=== PATIENT | female | born 1945 | race Caucasian/White ===

== ENCOUNTER 2022-10-13 09:23 | Outpatient (OUT) | payer MEDICARE, OTHER, SELFPAY ==
--- NOTE | 2022-10-13 09:30 | MR_ITS ---
[address] [address] Patient Name: CYNTHIA DORMAN MRN: [id number] date: 1945 Sex: F Assigned Patient Location: MRI Current Patient Location: MRI Accession/Order Number: [id number] Exam Date: 10/13/2022 09:47 Report Date: 10/13/2022 19:46 At the request of: RAJANI PENDLETON Procedure: MR head/brain wo con EXAM: MR head/brain wo con HISTORY: Vertigo R42 COMPARISON: None. TECHNIQUE: Multiplanar multisequence MRI was obtained through the head without contrast FINDINGS: The ventricles, sulci, and remaining CSF containing spaces maintain age-appropriate volume and symmetry. No hydrocephalus. No herniation. The anton matter/white matter differentiation is maintained. Previous small infarct at the left temporal lobe. No acute infarct, intracranial hemorrhage, or parenchymal mass. Periventricular and deep white matter foci of T2 prolongation. The central arterial flow voids and the flow voids of the major dural venous sinuses are maintained, indicative of patency. Opacification of several right mastoid air cells. Postsurgical changes of the lenses. MR/MR head/brain wo con IMPRESSION: 1. No acute intracranial abnormality. 2. 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 3. Opacification of several left mastoid air cells. Electronically authenticated by: HILLARY GREENE Date: 10/13/2022 19:46
== END 2022-10-13 09:24 | disposition home or self-care (01) ==
LOC: MRI 09:23
PROVIDERS: PCP Family Medicine; Visit Provider Family Medicine
DX: R42 Dizziness and giddiness (principal)
CPT/HCPCS: 70551

== ENCOUNTER 2023-03-15 07:32 | Outpatient (OUT) | payer MEDICARE, OTHER, SELFPAY ==
[2023-03-15 07:53] LABS: Basophils Absolute Auto 0.1 10^3/uL (0.0-0.1); Basophils Percent Auto 0.7 % (0.2-2.0); Eosinophils Absolute Auto 0.3 10^3/uL (0.0-0.7); Eosinophils Percent Auto 4.1 % (0.9-7.0); Hematocrit 37.6 % (36.0-48.0); Hemoglobin 12.4 g/dL (12.0-16.0); Immature Granulocytes Abs Auto 0.01 10^3/uL (0.00-0.03); Immature Granulocytes Pct Auto 0.1 % (0.0-0.5); Lymphocytes Absolute Auto 2.4 10^3/uL (1.2-3.8); Lymphocytes Percent Auto 33.1 % (20.5-60.0); Mean Corpuscular Hemoglobin 31.6 pg (26.7-34.0); Mean Corpuscular Volume 95.9 fL (81.0-99.0); Mean Platelet Volume 10.1 fL (9.5-13.5); Monocytes Absolute Auto 0.6 10^3/uL (0.3-0.8); Monocytes Percent Auto 8.3 % (1.7-12.0); Neutrophils Percent Auto 53.7 % (43.0-75.0); Platelet Count 288 10^3/uL (150-450); Red Blood Count 3.92 10^6/uL (4.20-5.40); Red Cell Distribution Width 13.4 % (11.0-15.0); White Blood Count 7.4 10^3/uL (4.0-11.0)
[2023-03-15 09:08] LABS: Alanine Aminotransferase 29 U/L (14-59); Albumin Globulin Ratio 0.9; Albumin Level 3.5 g/dL (3.4-5.0); Alkaline Phosphatase 52 U/L (46-116); Anion Gap 13.4; Aspartate Amino Transferase 25 U/L (15-37); BUN Creatinine Ratio 26.5; Bilirubin Total 0.5 mg/dL (0.2-1.0); Calcium 9.2 mg/dL (8.5-10.1); Carbon Dioxide 29.3 mmol/L (21.0-32.0); Chloride 106 mmol/L (98-107); Chol HDL Ratio 2.7; Cholesterol 153 mg/dL (<=200); Estimated GFR (African America >60 (>=60); Estimated GFR (Non-African Ame >60 (>=60); Free T3 1.54 pg/mL (2.18-3.98); Globulin 3.8 g/dL; Glucose 94 mg/dL (74-106); HDL Cholesterol 56 mg/dL (40-60); Potassium 4.7 mmol/L (3.5-5.1); Sodium 144 mmol/L (136-145); Thyroid Stimulating Hormone 3.454 uIU/mL (0.358-3.740); Total Protein 7.3 g/dL (6.4-8.2); Triglycerides 85 mg/dL (<=150)
[2023-03-15 09:25] LABS: Estimated Average Glucose 123 mg/dL; Glycohemoglobin A1C 5.9 % (4.5-6.2)
== END 2023-03-15 07:33 | disposition home or self-care (01) ==
LOC: LAB 07:34
PROVIDERS: PCP Family Medicine; Visit Provider Family Medicine
DX: H65.90 Unspecified nonsuppurative otitis media, unspecified ear (principal); E78.00 Pure hypercholesterolemia, unspecified; F41.9 Anxiety disorder, unspecified; R73.09 Other abnormal glucose; D64.9 Anemia, unspecified; E55.9 Vitamin D deficiency, unspecified
CPT/HCPCS: 36415; 80053; 80061; 82306; 83036; 83540; 84436; 84443; 84481; 85025

== ENCOUNTER 2023-07-30 09:41 | Outpatient (OUT) | payer MEDICARE, OTHER, SELFPAY ==
--- OUTSIDE RECORDS SUMMARY | 2023-07-30 09:57 | XMS_ITS | CCD ---
Author Organization [facility] Care Team Providers Care Fruit Sorter Name Role Phone DR RAJANI PENDLETON Attending Unavailable KEERTHI, DR GERARD Primary Care Unavailable KEERTHI, DR GERARD Admitting Unavailable KEERTHI, DR GERARD Attending Unavailable KEERTHI, DR GERARD Consulting Unavailable KEERTHI, DR GERARD Primary Care Unavailable KEERTHI, DR GERARD Admitting Unavailable VERONICA, DR KELLI Castaneda Consulting Unavailable KEERTHI, DR GERARD Consulting Unavailable KEERTHI, DR GERARD Primary Care Unavailable KEERTHI, DR GERARD Admitting Unavailable KEERTHI, DR GERARD Attending Unavailable DANI ESPINOZA Attending Unavailable RAJANI PENDLETON Referring Unavailable Problems Active Problems Problem Classification Problem Date Documented Date Episodic/Chronic Disorders of lipid metabolism (5 sources) Pure hypercholesterolemia, unspecified; Translations: [Hyperlipidemia, unspecified] Onset: 08-13-2021 Chronic Spondylosis; intervertebral disc disorders; other back problems (4 sources) Sacrococcygeal disorders, not elsewhere classified; Translations: [SACROCOCCYGEAL DISORDERS NEC] Onset: 04-29-2022 Episodic Past or Other Problems Problem Classification Problem Date Documented Da te Episodic/Chronic Conditions associated with dizziness or vertigo (4 sources) Other peripheral vertigo, unspecified ear; Translations: [OTHER PERIPHERAL VERTIGO UNS EAR] Onset: 12-05-2021 Episodic Deficiency and other anemia (1 source) Anemia, unspecified; Translations: [ANEMIA UNSPECIFIED] Onset: 08-19-2021 Episodic Diabetes mellitus without complication (1 source) Other abnormal glucose; Translations: [OTHER ABNORMAL GLUCOSE] Onset: 08-19-2021 Episodic Other screening for suspected conditions (not mental disorders or infectious disease) (1 source) Encounter for screening for malignant neoplasm of rectum; Translations: [ENC SCREEN MALIG NEOPLASM RECTUM] Onset: 08-19-2021 Episodic Results Test Name Value Interpretation Reference Range Facil ity CBC AUTO DIFFon 08-13-2021 BASO # 0.0 103/ul Normal 0.0-0.1 [facility] Comment on above: Performed By: #### C BC #### [facility] [address] [address] [address] Jonathan Morel Basophils/100 WBC (Bld) 0.5 % Normal 0.2-2.0 [facility] Comment on above: Performed By: #### C BC #### [facility] [address] [address] [address] Jonathan Morel EO # 0.1 103/ul Normal 0.0-0.7 [facility] Comment on above: Performed By: #### C BC #### [facility] [address] [place] [address] Dr. Jonathan Morel Eosinophils/100 WBC (Bld) 1.4 % Normal 0.9-7.0 [facility] Comment on above: Performed By: #### C BC #### [facility] [address] [place] [address] Dr. Jonathan Morel Erythrocyte distribution width (RBC) [Ratio] 13.2 % Normal 11.0-15.0 [facility] Comment on above: Performed By: #### C BC #### [facility] [address] [place] [address] Dr. Jonathan Morel Hematocrit (Bld) [Volume fraction] 39.0 % Normal 36.0-48.0 [facility] Comment on above: Performed By: #### C BC #### [facility] [address] [place] [address] Dr. Jonathan Morel Hemoglobin (Bld) [Mass/Vol] 12.9 g/dL Normal 12.0-16.0 [facility] Comment on above: Performed By: #### C BC #### [facility] [address] [place] [address] Dr. Jonathan Morel IG # 0.01 10e3/ul Normal 0.00-0.03 [facility] Comment on above: Performed By: #### C BC #### [facility] [address] [place] [address] Dr. Jonathan Morel IG % 0.2 % Normal 0.0-0.5 [facility] Comment on above: Performed By: #### C BC #### [facility] [address] [place] [address] Dr. Jonathan Morel LYMPH # 2.1 103/ul Normal 1.2-3.8 [facility] Comment on above: Performed By: #### C BC #### [facility] [address] [place] [address] Dr. Jonathan Morel Lymphocytes/100 WBC (Bld) 37.6 % Normal 20.5-60.0 [facility] Comment on above: Performed By: #### C BC #### [facility] [address] [place] [address] Dr. Jonathan Morel MANUAL DIFF REQ NO Normal [facility] Comment on above: Performed By: #### C BC #### [facility] [address] [place] [address] Dr. Jonathan Morel MCH (RBC) [Entitic mass] 31.3 pg Normal 26.7-34.0 [facility] Comment on above: Performed By: #### C BC #### [facility] [address] [place] [address] Dr. Jonathan Morel MCHC (RBC) [Mass/Vol] 33.1 g/dL Normal 29.9-35.2 [facility] Comment on above: Performed By: #### C BC #### [facility] [address] [place] [address] Dr. Jonathan Morel MCV (RBC) [Entitic vol] 94.7 fL Normal 81.0-99.0 [facility] Comment on above: Performed By: #### C BC #### [facility] [address] [place] [address] Dr. Jonathan Moerl MONO # 0.5 103/ul Normal 0.3-0.8 [facility] Comment on above: Performed By: #### C BC #### [facility] [address] [place] [address] Dr. Jonathan Morel Monocytes/100 WBC (Bld) 8.6 % Normal 1.7-12.0 [facility] Comment on above: Performed By: #### C BC #### [facility] [address] [address] [address] Jonathan Mroel NEUT # 2.9 103/ul Normal 1.4-6.5 [facility] Comment on above: Performed By: #### C BC #### [facility] [address] [address] [address] Jonathan Morel Neutrophils/100 WBC (Bld) 51.7 % Normal 43.0-75.0 [facility] Comment on above: Performed By: #### C BC #### [facility] [address] [place] [address] Dr. Jonathan Morel Platelet mean volume (Bld) [Entitic vol] 9.9 fL Normal 9.5-13.5 [facility] Comment on above: Performed By: #### C BC #### [facility] [address] [place] [address] Dr. Jonathan Morel PLT 298 103/ul Normal 150-450 [facility] Comment on above: Performed By: #### C BC #### [facility] [address] [place] [address] Dr. Jonathan Morel RBC 4.12 106/ul Critically low 4.20-5.40 [facility] Comment on above: Performed By: #### C BC #### [facility] [address] [place] [address] Dr. Jonathan Morel WBC 5.6 103/ul Normal 4.0-11.0 [facility] Comment on above: Performed By: #### C BC #### [facility] [address] [place] [address] Dr. Jonathan Morel FREE THYROXINE INDEX T7on FTI 2.52 Normal 1.30-4.50 [facility] Comment on above: Performed By: #### T SH, CMP, LIPID, T7 #### [facility] [address] [place] [address] Dr. Jonathan Morel T3U 34.0 % Normal 30.0-39.0 [facility] Comment on above: Performed By: #### T SH, CMP, LIPID, T7 #### [facility] [address] [address] [address] Jonathan Morel T4 [Mass/Vol] 7.40 ug/dL Normal 4.80-13.90 [facility] Comment on above: Performed By: #### T SH, CMP, LIPID, T7 #### [facility] [address] [address] [address] Jonathan Morel GLYCOHEMOGLOBIN A1Con 2021 ADA RECOMMENDATION SEE BELOW Normal [facility] Comment on above: Result Comment: ADA RECOMMENDED LIMIT 4.0 - 6.0 ADA THERAPEUTIC TARGET < 7.0 ACTION SUGGESTED > 7.0 Performed By: #### A 1C #### [facility] [address] [place] [address] Dr. Jonathan Morel Glucose [Mass/Vol] 120 mg/dL Normal [facility] Comment on above: Performed By: #### A 1C #### [facility] [address] [place] [address] Dr. Jonathan Morel HbA1c (Bld) [Mass fraction] 5.8 % Normal 4.5-6.2 [facility] Comment on above: Performed By: #### A 1C #### [facility] [address] [place] [address] Dr. Jonathan Morel IRONon 08-13-2021 Iron [Mass/Vol] 128.0 ug/dL Normal 50.0-170.0 [facility] Comment on above: Performed By: #### I JOSE ANGEL #### [facility] [address] [place] [address] Dr. Jonathan Morel LIPID PROFILEon 08-13-2021 CHOL-HDL RATIO NORM SEE BELOW Normal [facility] Comment on above: Result Comment: 3.3 - 4.4 LOW RISK 4.4 - 7.1 AVERAGE RISK 7.1 - 11.0 MODERATE RISK >11.0 HIGH RISK Performed By: #### T SH, CMP, LIPID, T7 #### [facility] [address] [place] [address] Dr. Jonathan Morel Cholesterol [Mass/Vol] 145 mg/dL Normal <=200 [facility] Comment on above: Performed By: #### T SH, CMP, LIPID, T7 #### [facility] [address] [address] [address] Jonathan Morel Cholesterol in HDL [Mass/Vol] 53 mg/dL Normal 40-60 [facility] Comment on above: Performed By: #### T SH, CMP, LIPID, T7 #### [facility] [address] [address] [address] Jonathan Morel Cholesterol in LDL [Mass/Vol] 71.8 mg/dL Normal [facility] Comment on above: Performed By: #### T SH, CMP, LIPID, T7 #### [facility] [address] [address] [address] Jonathan Morel Cholesterol.total/Cho lesterol in HDL [Mass ratio] 2.7 {ratio} Normal [facility] Comment on above: Performed By: #### T SH, CMP, LIPID, T7 #### [facility] [address] [address] [address] Jonathan Morel HDL NORMAL > or = 60 mg/dl - LOW CARDIOVASCULAR RISK <40 mg/dl - HIGH CARDIOVASCULAR RISK Normal [facility] Comment on above: Performed By: #### T SH, CMP, LIPID, T7 #### [facility] [address] [address] [address] Jonathan Morel LDL CALC NORMAL SEE BELOW Normal [facility] Comment on above: Result Comment: <100 mg/dl OPTIMAL 100 - 129 mg/dl NEAR OR ABOVE OPTIMAL 130 - 159 mg/dl BORDERLINE HIGH 160 - 189 mg/dl HIGH >190 mg/dl VERY HIGH Performed By: #### T SH, CMP, LIPID, T7 #### [facility] [address] [address] [address] Jonathan Morel Triglyceride [Mass/Vol] 101 mg/dL Normal <=150 [facility] Comment on above: Performed By: #### T SH, CMP, LIPID, T7 #### [facility] [address] [address] [address] Jonathan Morel VLDL CALC 20.2 mg/dL Normal [facility] Comment on above: Performed By: #### T SH, CMP, LIPID, T7 #### [facility] [address] [address] [address] Jonathan Morel PROF 14(COMP METB)on 022 Albumin [Mass/Vol] 3.8 g/dL Normal 3.4-5.0 [facility] Comment on above: Performed By: #### T SH, CMP, LIPID, T7 #### [facility] [address] [address] [address] Jonathan Morel Albumin/Globulin [Mass ratio] 1.0 {ratio} Normal [facility] Comment on above: Performed By: #### T SH, CMP, LIPID, T7 #### [facility] [address] [place] [address] Dr. Jonathan Morel ALP [Catalytic activity/Vol] 49 U/L Normal 46-116 [facility] Comment on above: Performed By: #### T SH, CMP, LIPID, T7 #### [facility] [address] [place] [address] Dr. Jonathan Morel ALT [Catalytic activity/Vol] 27 U/L Normal 14-59 [facility] Comment on above: Performed By: #### T SH, CMP, LIPID, T7 #### [facility] [address] [place] [address] Dr. Jonathan Morel Anion gap [Moles/Vol] 10.8 mmol/L Normal [facility] Comment on above: Performed By: #### T SH, CMP, LIPID, T7 #### [facility] [address] [place] [address] Dr. Jonathan Morel AST [Catalytic activity/Vol] 23 U/L Normal 15-37 [facility] Comment on above: Performed By: #### T SH, CMP, LIPID, T7 #### [facility] [address] [place] [address] Dr. Jonathan Morel Bilirubin [Mass/Vol] 0.7 mg/dL Normal 0.2-1.0 [facility] Comment on above: Performed By: #### T SH, CMP, LIPID, T7 #### [facility] [address] [place] [address] Dr. Jonathan Morel Calcium [Mass/Vol] 9.5 mg/dL Normal 8.5-10.1 [facility] Comment on above: Performed By: #### T SH, CMP, LIPID, T7 #### [facility] [address] [address] [address] Jonathan Morel Chloride [Moles/Vol] 105 mmol/L Normal 98-107 [facility] Comment on above: Performed By: #### T SH, CMP, LIPID, T7 #### [facility] [address] [address] [address] Jonathan Morel CO2 [Moles/Vol] 30.0 mmol/L Normal 21.0-32.0 [facility] Comment on above: Performed By: #### T SH, CMP, LIPID, T7 #### [facility] [address] [place] [address] Dr. Jonathan Morel Creatinine [Mass/Vol] 0.84 mg/dL Normal 0.55-1.02 [facility] Comment on above: Performed By: #### T SH, CMP, LIPID, T7 #### [facility] [address] [place] [address] Dr. Jonathan Morel EGFR-AF MALAWIAN >60 Normal >=60 [facility] Comment on above: Performed By: #### T SH, CMP, LIPID, T7 #### [facility] [address] [place] [address] Dr. Jonathan Morel EGFR-NON AF MALAWIAN >60 Normal >=60 [facility] Comment on above: Performed By: #### T SH, CMP, LIPID, T7 #### [facility] [address] [place] [address] Dr. Jonathan Morel Globulin (S) [Mass/Vol] 3.8 g/dL Normal [facility] Comment on above: Performed By: #### T SH, CMP, LIPID, T7 #### [facility] [address] [place] [address] Dr. Jonathan Morel Glucose [Mass/Vol] 91 mg/dL Normal 74-106 [facility] Comment on above: Performed By: #### T SH, CMP, LIPID, T7 #### [facility] [address] [address] [address] Jonathan Morel Potassium [Moles/Vol] 4.8 mmol/L Normal 3.5-5.1 [facility] Comment on above: Performed By: #### T SH, CMP, LIPID, T7 #### [facility] [address] [address] [address] Jonathan Morel Protein [Mass/Vol] 7.6 g/dL Normal 6.4-8.2 [facility] Comment on above: Performed By: #### T SH, CMP, LIPID, T7 #### [facility] [address] [place] [address] Dr. Jonathan Morel Sodium [Moles/Vol] 141 mmol/L Normal 136-145 [facility] Comment on above: Performed By: #### T SH, CMP, LIPID, T7 #### [facility] [address] [place] [address] Dr. Jonathan Morel Urea nitrogen [Mass/Vol] 20.0 mg/dL Critically high 7.0-18.0 [facility] Comment on above: Performed By: #### T SH, CMP, LIPID, T7 #### [facility] [address] [address] [address] Jonathan Morel Urea nitrogen/Creatinine [Mass ratio] 23.8 mg/mg Normal [facility] Comment on above: Performed By: #### T SH, CMP, LIPID, T7 #### [facility] [address] [place] [address] Dr. Jonathan Morel TSHon 08-13-2021 TSH 2.649 uIU/mL Normal 0.358-3.740 [facility] Comment on above: Performed By: #### T SH, CMP, LIPID, T7 #### [facility] [address] [place] [address] Dr. Jonathan Morel TSH RANGE SEE BELOW Normal [facility] Comment on above: Result Comment: <0.3 4 UIU/ml HYPERTHYROID 0.34-5.60 UIU/ml EUTHYROID >5.60 UIU/ml HYPOTHYROID Performed By: #### T SH, CMP, LIPID, T7 #### [facility] [address] [address] [address] Jonathan Morel Encounters Encounter Date Encounter Type Care Provider Facility Start: 07-26-2023 End: 07-26-2023 ambulatory DANI ESPINOZA Not Available Start: 04-29-2022 End: 04-30-[address] RAJANI PENDLETON Facility:[facility] Start: 12-05-2021 End: 12-23-[address] RAJANI PENDLETON Facility:[facility] Start: 08-13-2021 End: 08-14-[address] RAJANI PENDLETON Facility:[facility] Payers Date Payer Category Payer Private Health Insurance [id number] 1961 Medicare [id number] 1959 Private Health Insurance [id number] 1945 Unknown [id number] 1945 Unknown [id number] [id number] [id number] 1945 Unknown [id number] [id number] [id number] 1945 Unknown [id number] [id number] Clinical Note 04-29-2022 Note Date & Type Note Facility 04-29-2022 Note PROCEDURE: XR SACRUM _COCCYX, XR LSPINE MIN 4 VIEWS HISTORY: Disorder of sacrum ; chronic low back pain, coccyx pain, bilateral leg pain COMPARISON: No relevant comparison available. FINDINGS: BONES: Straightening of normal lordotic curvature, and development of marked left convex curvature of lumbar spine. Grade 1 right lateral listhesis of L1 on L2. Mild grade 1 retrolisthesis of L3 on 4. Multilevel moderate marked degenerative facet arthropathy. DISC SPACES: Marked narrowing along the right margin of L1-2, L2-3, L3-4. Mild narrowing L4-5 and L5-S1. PARASPINOUS: Negative. No paraspinous abnormality is seen. SACRUM: No fracture, disruption of the sacral ala line, or cortical irregularity. COCCYX: No fracture or suspicious alignment. SOFT TISSUES: No widening of the sacroiliac joints. No radiopaque foreign body. OTHER: Negative IMPRESSION: 1. Levoscoliosis of lumbar spine and overall marked degenerative changes. 2. Unremarkable sacrum and coccyx. Electronically authenticated by: KELLI MARTIN Date: 2022-04-29 10:20 [facility] Clinical Note 04-29-2022 Note Date & Type Note Facility 04-29-2022 Note PROCEDURE: XR SACRUM _COCCYX, XR LSPINE MIN 4 VIEWS HISTORY: Disorder of sacrum ; chronic low back pain, coccyx pain, bilateral leg pain COMPARISON: No relevant comparison available. FINDINGS: BONES: Straightening of normal lordotic curvature, and development of marked left convex curvature of lumbar spine. Grade 1 right lateral listhesis of L1 on L2. Mild grade 1 retrolisthesis of L3 on 4. Multilevel moderate marked degenerative facet arthropathy. DISC SPACES: Marked narrowing along the right margin of L1-2, L2-3, L3-4. Mild narrowing L4-5 and L5-S1. PARASPINOUS: Negative. No paraspinous abnormality is seen. SACRUM: No fracture, disruption of the sacral ala line, or cortical irregularity. COCCYX: No fracture or suspicious alignment. SOFT TISSUES: No widening of the sacroiliac joints. No radiopaque foreign body. OTHER: Negative IMPRESSION: 1. Levoscoliosis of lumbar spine and overall marked degenerative changes. 2. Unremarkable sacrum and coccyx. Electronically authenticated by: KELLI MARTIN Date: 2022-04-29 10:20 [facility] Summary Purpose Family History No Family History Records FoundNo Family History Records Found Advance Directives No Advanced Directives Records FoundNo Advanced Directives Records Found Additional Source Comments INFORMATION SOURCE (unrecogn ized section and content) DATE CREATED AUTHOR 04/30/2022 [facility] DATE CREATED AUTHOR AUTHOR'S ORGANIZ ATION 07/27/2023 [facility] FOR RECORDS PERTAINING TO PATIENTS WHO ARE OR HAVE BEEN ENROLLED IN A CHEMICAL DEPENDENCY/SUBSTANCEABUSE PROGRAM, SOME INFORMATION MAY BE OMITTED. This clinical summary was aggregated from multiple sources. Caution should be exercised in using it in the provision of clinical care. This summary normalizes information from multiple sources, and as a consequence, information in this document may materially change the coding, format and clinical context of patient data. In addition, data may be omitted in some cases. CLINICAL DECISIONS SHOULD BE BASED ON THE PRIMARY CLINICAL RECORDS. [facility] [employer] [facility]. provides no warranty or guarantee of the accuracy or completeness of information in this document.
[2023-07-30 11:02] LABS: Free T3 3.22 pg/mL (2.18-3.98); Thyroid Stimulating Hormone 1.267 uIU/mL (0.358-3.740)
== END 2023-07-30 09:42 | disposition home or self-care (01) ==
LOC: LAB 09:42
PROVIDERS: PCP Family Medicine; Visit Provider Family Medicine
DX: E03.9 Hypothyroidism, unspecified (principal)
CPT/HCPCS: 36415; 84436; 84443; 84481

== ENCOUNTER 2024-02-01 08:44 | Outpatient (OUT) | payer MEDICARE, OTHER, SELFPAY ==
--- NOTE | 2024-02-01 08:48 | XR_ITS ---
The [address] [address] Patient Name: CYNTHIA DORMAN MRN: [id number] date: 1945 Sex: F Assigned Patient Location: [facility] Current Patient Location: Accession/Order Number: [id number] Exam Date: 02/01/2024 09:02 Report Date: 02/02/2024 09:08 At the request of: RAJANI PENDLETON Procedure: XR DEXA axial skeleton EXAMINATION: XR DEXA axial skeleton, 02/01/2024 9:02 AM EST HISTORY: Age Related Osteoporosis COMPARISON: 2005. TECHNIQUE: Dual-energy X-ray absorptiometry (DEXA) bone density study performed for the axial skeleton. FINDINGS: Bone mineral density AP spine L1-L4 measures 1.367 g/sq cm. T score 1.6. Normal Lowest bone mineral density right femoral neck measures 0.779 g/sq cm. T score -1.9. Osteopenia XR/XR DEXA axial skeleton IMPRESSION: Osteopenia. Moderate fracture risk Pharmacologic treatment recommendations * No uniform recommendation applies to all patients. Management plans must be individualized. * Consider initiating pharmacologic treatment in postmenopausal women and men >= 50 years of age who have the following: Primary fracture prevention: * T-score <= - 2.5 at the femoral neck, total hip, lumbar spine, 33% radius (some uncertainty with existing data) by DXA. * Low bone mass (osteopenia: T-score between - 1.0 and - 2.5) at the femoral neck or total hip by DXA with a 10-year hip fracture risk >= 3% or a 10-year major osteoporosis-related fracture risk >= 20% (i.e., clinical vertebral, hip, forearm, or proximal humerus) based on the US-adapted FRAXregistered model. Secondary fracture prevention: * Fracture of the hip or vertebra regardless of BMD [4, 5]. * Fracture of proximal humerus, pelvis, or distal forearm in persons with low bone mass (osteopenia: T-score between - 1.0 and - 2.5). The decision to treat should be individualized in persons with a fracture of the proximal humerus, pelvis, or distal forearm who do not have osteopenia or low BMD [12, 13]. Graciela Rowland MS, Susanna KL, Ladi EM, Manoj KG, AJ, Terrence ES. The clinician's guide to prevention and treatment of osteoporosis. Osteoporos Int. 2021;33(10):1211-8126. doi: 10.1007/j27541-807-27996-e. Epub 2021Jul 24. Erratum in: Osteoporos Int. 2021Oct 23;: PMID: [id number]; PMCID: [id number]. Electronically authenticated by: ELIZABETH VALENTE Date: 02/02/2024 09:08
== END 2024-02-01 08:45 | disposition home or self-care (01) ==
LOC: RAD 08:44
PROVIDERS: PCP Family Medicine; Visit Provider Family Medicine
DX: M81.0 Age-related osteoporosis without current pathological fracture (principal); M85.80 Other specified disorders of bone density and structure, unspecified site
CPT/HCPCS: 77080

== ENCOUNTER 2024-05-03 07:43 | Outpatient (OUT) | payer MEDICARE, OTHER, SELFPAY ==
--- OUTSIDE RECORDS SUMMARY | 2024-05-03 07:48 | XMS_ITS | CCD ---
Author Organization [facility] Care Team Providers Care Soda Flaker Name Role Phone DR RAJANI PENDLETON Attending Unavailable KEERTHI, DR GERARD Primary Care Unavailable KEERTHI, DR GERARD Admitting Unavailable KEERTHI, DR GERARD Attending Unavailable KEERTHI, DR GERARD Consulting Unavailable KEERTHI, DR GERARD Primary Care Unavailable KEERTHI, DR GERARD Admitting Unavailable ZIEBER, DR KELLI Castaneda Consulting Unavailable KEERTHI, DR GERARD Consulting Unavailable KEERTHI, DR GERARD Primary Care Unavailable KEERTHI, DR GERARD Admitting Unavailable KEERTHI, DR GERARD Attending Unavailable DANI ESPINOZA Attending Unavailable RAJANI PENDLETON Referring Unavailable ESE MCCLAIN Attending Unavailable Problems Active Problems Problem Classification Problem [...] 08-13-2021 BASO # 0.0 103/ul Normal 0.0-0.1 [facility] Comment on above: Performed By: #### C BC #### [facility] [address] [place] [address] Dr. Jonathan Morel Basophils/100 WBC (Bld) 0.5 % Normal 0.2-2.0 [facility] Comment on above: Performed By: #### C BC #### [facility] [address] [place] [address] Dr. Jonathan Morel EO # 0.1 103/ul Normal 0.0-0.7 [facility] Comment on above: Performed By: #### C BC #### [facility] [address] [place] [address] Dr. Jonathan Morel Eosinophils/100 WBC (Bld) 1.4 % Normal 0.9-7.0 [facility] Comment on above: Performed By: #### C BC #### [facility] [address] [place] [address] Dr. Jonathan Morel Erythrocyte distribution width (RBC) [Ratio] 13.2 % Normal 11.0-15.0 [facility] Comment on above: Performed By: #### C BC #### [facility] [address] [place] [address] Dr. Jonathan Morel Hematocrit (Bld) [Volume fraction] 39.0 % Normal 36.0-48.0 [facility] Comment on above: Performed By: #### C BC #### [facility] [address] [place] [address] Dr. Jonathan Morel Hemoglobin (Bld) [Mass/Vol] 12.9 g/dL Normal 12.0-16.0 [facility] Comment on above: Performed By: #### C BC #### [facility] [address] [place] [address] Dr. Jonathan Morel IG # 0.01 10e3/ul Normal 0.00-0.03 [facility] Comment on above: Performed By: #### C BC #### [facility] [address] [place] [address] Dr. Jonathan Morel IG % 0.2 % Normal 0.0-0.5 [facility] Comment on above: Performed By: #### C BC #### [facility] [address] [place] [address] Dr. Jonathan Morel LYMPH # 2.1 103/ul Normal 1.2-3.8 [facility] Comment on above: Performed By: #### C BC #### [facility] [address] [place] [address] Dr. Jonathan Morel Lymphocytes/100 WBC (Bld) 37.6 % Normal 20.5-60.0 [facility] Comment on above: Performed By: #### C BC #### [facility] [address] [place] [address] Dr. Jonathan Morel MANUAL DIFF REQ NO Normal [facility] Comment on above: Performed By: #### C BC #### [facility] [address] [place] [address] Dr. Jonathan Morel MCH (RBC) [Entitic mass] 31.3 pg Normal 26.7-34.0 [facility] Comment on above: Performed By: #### C BC #### [facility] [address] [place] [address] Dr. Jonathan Morel MCHC (RBC) [Mass/Vol] 33.1 g/dL Normal 29.9-35.2 [facility] Comment on above: Performed By: #### C BC #### [facility] [address] [place] [address] Dr. Jonathan Morel MCV (RBC) [Entitic vol] 94.7 fL Normal 81.0-99.0 [facility] Comment on above: Performed By: #### C BC #### [facility] [address] [place] [address] Dr. Jonathan Morel MONO # 0.5 103/ul Normal 0.3-0.8 [facility] Comment on above: Performed By: #### C BC #### [facility] [address] [place] [address] Dr. Jonathan Morel Monocytes/100 WBC (Bld) 8.6 % Normal 1.7-12.0 [facility] Comment on above: Performed By: #### C BC #### [facility] [address] [address] [address] Jonathan Morel NEUT # 2.9 103/ul Normal 1.4-6.5 [facility] Comment on above: Performed By: #### C BC #### [facility] [address] [address] [address] Jonathan Morel Neutrophils/100 WBC (Bld) 51.7 % Normal 43.0-75.0 [facility] Comment on above: Performed By: #### C BC #### [facility] [address] [address] [address] Jonathan Morel Platelet mean volume (Bld) [Entitic vol] 9.9 fL Normal 9.5-13.5 [facility] Comment on above: Performed By: #### C BC #### [facility] [address] [place] [address] Dr. Jonathan Morel PLT 298 103/ul Normal 150-450 [facility] Comment on above: Performed By: #### C BC #### [facility] [address] [place] [address] Dr. Jonathan Morel RBC 4.12 106/ul Critically low 4.20-5.40 [facility] Comment on above: Performed By: #### C BC #### [facility] [address] [place] [address] Dr. Jonathan Morel WBC 5.6 103/ul Normal 4.0-11.0 [facility] Comment on above: Performed By: #### C BC #### [facility] [address] [place] [address] Dr. Jonathan Morel FREE THYROXINE INDEX T7on FTI 2.52 Normal 1.30-4.50 [facility] Comment on above: Performed By: #### T SH, CMP, LIPID, T7 #### [facility] [address] [place] [address] Dr. Jonathan Morel T3U 34.0 % Normal 30.0-39.0 [facility] Comment on above: Performed By: #### T SH, CMP, LIPID, T7 #### [facility] [address] [address] [address] Jonathan Morel T4 [Mass/Vol] 7.40 ug/dL Normal 4.80-13.90 [facility] Comment on above: Performed By: #### T SH, CMP, LIPID, T7 #### [facility] [address] [address] [address] Jonathan Morel GLYCOHEMOGLOBIN A1Con 2021 ADA RECOMMENDATION SEE BELOW Normal [facility] Comment on above: Result Comment: ADA RECOMMENDED LIMIT 4.0 - 6.0 ADA THERAPEUTIC TARGET < 7.0 ACTION SUGGESTED > 7.0 Performed By: #### A 1C #### [facility] [address] [place] [address] Dr. Jonathan Morel Glucose [Mass/Vol] 120 mg/dL Normal [facility] Comment on above: Performed By: #### A 1C #### [facility] [address] [address] [address] Jonathan Morel HbA1c (Bld) [Mass fraction] 5.8 % Normal 4.5-6.2 [facility] Comment on above: Performed By: #### A 1C #### [facility] [address] [address] [address] Jonathan Morel IRONon 08-13-2021 Iron [Mass/Vol] 128.0 ug/dL Normal 50.0-170.0 [facility] Comment on above: Performed By: #### I JOSE ANGEL #### [facility] [address] [place] [address] Dr. Jonathan Morel LIPID PROFILEon 08-13-2021 CHOL-HDL RATIO NORM SEE BELOW Normal [facility] Comment on above: Result Comment: 3.3 - 4.4 LOW RISK 4.4 - 7.1 AVERAGE RISK 7.1 - 11.0 MODERATE RISK >11.0 HIGH RISK Performed By: #### T SH, CMP, LIPID, T7 #### [facility] [address] [address] [address] Jonathan Morel Cholesterol [Mass/Vol] 145 mg/dL Normal <=200 [facility] Comment on above: Performed By: #### T SH, CMP, LIPID, T7 #### [facility] [address] [address] [address] Jonathan Morel Cholesterol in HDL [Mass/Vol] 53 mg/dL Normal 40-60 [facility] Comment on above: Performed By: #### T SH, CMP, LIPID, T7 #### [facility] [address] [address] [address] Jonathan Morel Cholesterol in LDL [Mass/Vol] 71.8 mg/dL Normal [facility] Comment on above: Performed By: #### T SH, CMP, LIPID, T7 #### [facility] [address] [address] [address] Jonathan Morel Cholesterol.total/Cho lesterol in HDL [Mass ratio] 2.7 {ratio} Normal [facility] Comment on above: Performed By: #### T SH, CMP, LIPID, T7 #### [facility] [address] [address] [address] Jonathan Morel HDL NORMAL > or = 60 mg/dl - LOW CARDIOVASCULAR RISK <40 mg/dl - HIGH CARDIOVASCULAR RISK Normal [facility] Comment on above: Performed By: #### T SH, CMP, LIPID, T7 #### [facility] [address] [address] [address] Jonathan Morel LDL CALC NORMAL SEE BELOW Normal [facility] Comment on above: Result Comment: <100 mg/dl OPTIMAL 100 - 129 mg/dl NEAR OR ABOVE OPTIMAL 130 - 159 mg/dl BORDERLINE HIGH 160 - 189 mg/dl HIGH >190 mg/dl VERY HIGH Performed By: #### T SH, CMP, LIPID, T7 #### [facility] [address] [address] [address] Jonathan Morel Triglyceride [Mass/Vol] 101 mg/dL Normal <=150 [facility] Comment on above: Performed By: #### T SH, CMP, LIPID, T7 #### [facility] [address] [address] [address] Jonathan Morel VLDL CALC 20.2 mg/dL Normal [facility] Comment on above: Performed By: #### T SH, CMP, LIPID, T7 #### [facility] [address] [address] [address] Jonathan Morel PROF 14(COMP METB)on 022 Albumin [Mass/Vol] 3.8 g/dL Normal 3.4-5.0 [facility] Comment on above: Performed By: #### T SH, CMP, LIPID, T7 #### [facility] [address] [place] [address] Dr. Jonathan Morel Albumin/Globulin [Mass ratio] 1.0 {ratio} Normal [facility] Comment on above: Performed By: #### T SH, CMP, LIPID, T7 #### [facility] [address] [place] [address] Dr. Jonathan Morel ALP [Catalytic activity/Vol] 49 U/L Normal 46-116 [facility] Comment on above: Performed By: #### T SH, CMP, LIPID, T7 #### [facility] [address] [address] [address] Jonathan Morel ALT [Catalytic activity/Vol] 27 U/L Normal 14-59 [facility] Comment on above: Performed By: #### T SH, CMP, LIPID, T7 #### [facility] [address] [place] [address] Dr. Jonathan Morel Anion gap [Moles/Vol] 10.8 mmol/L Normal [facility] Comment on above: Performed By: #### T SH, CMP, LIPID, T7 #### [facility] [address] [place] [address] Dr. Jonathan Morel AST [Catalytic activity/Vol] 23 U/L Normal 15-37 [facility] Comment on above: Performed By: #### T SH, CMP, LIPID, T7 #### [facility] [address] [place] [address] Dr. Jonathan Morel Bilirubin [Mass/Vol] 0.7 mg/dL Normal 0.2-1.0 [facility] Comment on above: Performed By: #### T SH, CMP, LIPID, T7 #### [facility] [address] [address] [address] Jonathan Morel Calcium [Mass/Vol] 9.5 mg/dL Normal 8.5-10.1 [facility] Comment on above: Performed By: #### T SH, CMP, LIPID, T7 #### [facility] [address] [place] [address] Dr. Jonathan Morel Chloride [Moles/Vol] 105 mmol/L Normal 98-107 [facility] Comment on above: Performed By: #### T SH, CMP, LIPID, T7 #### [facility] [address] [place] [address] Dr. Jonathan Morel CO2 [Moles/Vol] 30.0 mmol/L Normal 21.0-32.0 [facility] Comment on above: Performed By: #### T SH, CMP, LIPID, T7 #### [facility] [address] [place] [address] Dr. Jonathan Morel Creatinine [Mass/Vol] 0.84 mg/dL Normal 0.55-1.02 [facility] Comment on above: Performed By: #### T SH, CMP, LIPID, T7 #### [facility] [address] [place] [address] Dr. Jonathan Morel EGFR-AF HUNGARIAN >60 Normal >=60 [facility] Comment on above: Performed By: #### T SH, CMP, LIPID, T7 #### [facility] [address] [place] [address] Dr. Jonathan Morel EGFR-NON AF HUNGARIAN >60 Normal >=60 [facility] Comment on above: Performed By: #### T SH, CMP, LIPID, T7 #### [facility] [address] [place] [address] Dr. Jonathan Morel Globulin (S) [Mass/Vol] 3.8 g/dL Normal [facility] Comment on above: Performed By: #### T SH, CMP, LIPID, T7 #### [facility] [address] [place] [address] Dr. Jonathan Morel Glucose [Mass/Vol] 91 mg/dL Normal 74-106 [facility] Comment on above: Performed By: #### T SH, CMP, LIPID, T7 #### [facility] [address] [address] [address] Jonathan Morel Potassium [Moles/Vol] 4.8 mmol/L Normal 3.5-5.1 [facility] Comment on above: Performed By: #### T SH, CMP, LIPID, T7 #### [facility] [address] [place] [address] Dr. Jonathan Morel Protein [Mass/Vol] 7.6 g/dL Normal 6.4-8.2 [facility] Comment on above: Performed By: #### T SH, CMP, LIPID, T7 #### [facility] [address] [place] [address] Dr. Jonathan Morel Sodium [Moles/Vol] 141 mmol/L Normal 136-145 [facility] Comment on above: Performed By: #### T SH, CMP, LIPID, T7 #### [facility] [address] [place] [address] Dr. Jonathan Morel Urea nitrogen [Mass/Vol] 20.0 mg/dL Critically high 7.0-18.0 [facility] Comment on above: Performed By: #### T SH, CMP, LIPID, T7 #### [facility] [address] [place] [address] Dr. Jonathan Morel Urea nitrogen/Creatinine [Mass ratio] 23.8 mg/mg Normal [facility] Comment on above: Performed By: #### T SH, CMP, LIPID, T7 #### [facility] [address] [place] [address] Dr. Jonathan Morel TSHon 08-13-2021 TSH 2.649 uIU/mL Normal 0.358-3.740 [facility] Comment on above: Performed By: #### T SH, CMP, LIPID, T7 #### [facility] [address] [place] [address] Dr. Jonathan Morel TSH RANGE SEE BELOW Normal [facility] Comment on above: Result Comment: <0.3 4 UIU/ml HYPERTHYROID 0.34-5.60 UIU/ml EUTHYROID >5.60 UIU/ml HYPOTHYROID Performed By: #### T SH, CMP, LIPID, T7 #### [facility] [id number] Jonathan Morel Encounters Encounter Date Encounter Type Care Provider Facility Start: 08-04-2023 End: 08-04-2023 ambulatory ESE MCCLAIN Not Available Start: 07-26-2023 End: 07-26-2023 ambulatory DANI Raegan ESPINOZA Not Available Start: 04-29-2022 End: 04-30-[address] RAJANI PENDLETON Facility:[facility] Start: 12-05-2021 End: 12-23-[address] RAJANI PENDLETON Facility[facility] Start: 08-13-2021 End: 08-14-[address] RAJANI PENDLETON Facility:[facility] Payers Date Payer Category Payer Private Health Insurance [id number] 1961 Medicare [id number] 1959 Private Health Insurance [id number] 1945 Unknown [id number] 1945 Unknown [id number] 2.16.84 [id number] 1943 Unknown [id number] [id number] [id number] 1943 Unknown [id number] 2.16.84 [id number] 1943 Unknown [id number] [id number] [id number] Clinical Note 04-29-2022 Note Date & Type [...] by: KELLI MARTIN Date: 2022-04-29 10:20 [facility] Clinical Note 04-29-2022 Note Date & Type [...] authenticated by: KELLI MARTIN Date: 2022-04-29 10:20 [facility] Summary Purpose Family History No Family History Records FoundNo Family History Records Found Advance Directives No Advanced Directives Records FoundNo Advanced Directives Records Found Additional Source Comments INFORMATION SOURCE (unrecogn ized section and content) DATE CREATED AUTHOR 04/30/2022 [facility] DATE CREATED AUTHOR AUTHOR'S ORGANIZ ATION 08/06/2023 [facility] EPIC FOR RECORDS PERTAINING TO PATIENTS WHO ARE [...] BE BASED ON THE PRIMARY CLINICAL RECORDS. [facility] [employer] [facility]. provides no warranty or guarantee of the accuracy or completeness of information in this document.
[2024-05-03 08:12] LABS: Basophils Absolute Auto 0.1 10^3/uL (0.0-0.1); Basophils Percent Auto 0.8 % (0.2-2.0); Eosinophils Absolute Auto 0.1 10^3/uL (0.0-0.7); Eosinophils Percent Auto 1.2 % (0.9-7.0); Hematocrit 37.3 % (36.0-48.0); Hemoglobin 12.3 g/dL (12.0-16.0); Immature Granulocytes Abs Auto 0.01 10^3/uL (0.00-0.03); Immature Granulocytes Pct Auto 0.2 % (0.0-0.5); Lymphocytes Absolute Auto 2.3 10^3/uL (1.2-3.8); Lymphocytes Percent Auto 36.1 % (20.5-60.0); Mean Corpuscular Hemoglobin 31.5 pg (26.7-34.0); Mean Corpuscular Volume 95.4 fL (81.0-99.0); Mean Platelet Volume 9.9 fL (9.5-13.5); Monocytes Absolute Auto 0.5 10^3/uL (0.3-0.8); Neutrophils Absolute Auto 3.5 10^3/uL (1.4-6.5); Neutrophils Percent Auto 53.7 % (43.0-75.0); Platelet Count 309 10^3/uL (150-450); Red Blood Count 3.91 10^6/uL (4.20-5.40); Red Cell Distribution Width 13.2 % (11.0-15.0); White Blood Count 6.5 10^3/uL (4.0-11.0)
[2024-05-03 08:27] LABS: Estimated Average Glucose 111 mg/dL; Glycohemoglobin A1C 5.5 % (4.5-6.2)
[2024-05-03 08:41] LABS: Alanine Aminotransferase 25 U/L (14-59); Albumin Globulin Ratio 0.9; Albumin Level 3.5 g/dL (3.4-5.0); Alkaline Phosphatase 50 U/L (46-116); Aspartate Amino Transferase 23 U/L (15-37); BUN Creatinine Ratio 20.5; Bilirubin Total 0.6 mg/dL (0.2-1.0); Calcium 8.9 mg/dL (8.5-10.1); Carbon Dioxide 30.4 mmol/L (21.0-32.0); Chloride 107 mmol/L (98-107); Chol HDL Ratio 2.9; Cholesterol 156 mg/dL (<=200); Estimated GFR (African America >60 (>=60 mL/min/1.73m^2); Estimated GFR (Non-African Ame >60 (>=60 mL/min/1.73m^2); Free T3 1.41 pg/mL (2.18-3.98); Globulin 3.7 g/dL; Glucose 94 mg/dL (74-106); HDL Cholesterol 53 mg/dL (40-60); LDL Cholesterol Calculated 82.6 mg/dL; Potassium 4.4 mmol/L (3.5-5.1); Sodium 145 mmol/L (136-145); Thyroid Stimulating Hormone 1.878 uIU/mL (0.358-3.740); Total Protein 7.2 g/dL (6.4-8.2); Triglycerides 102 mg/dL (<=150); VLDL CHOLESTEROL 20.4 mg/dL
== END 2024-05-03 07:44 | disposition home or self-care (01) ==
LOC: LAB 07:45
PROVIDERS: PCP Family Medicine; Visit Provider Family Medicine
DX: E78.5 Hyperlipidemia, unspecified (principal); R73.09 Other abnormal glucose; I10 Essential (primary) hypertension; Z12.12 Encounter for screening for malignant neoplasm of rectum
CPT/HCPCS: 36415; 80053; 80061; 83036; 84436; 84443; 84481; 85025

== ENCOUNTER 2025-01-16 08:10 | Outpatient (OUT) | payer MEDICARE, OTHER, SELFPAY ==
--- OUTSIDE RECORDS SUMMARY | 2025-01-16 08:12 | XMS_ITS | CCD ---
Author Organization [facility] Care Team Providers Care Refinery Operator [facility] Recovery [facility] Name Role Phone DR RAJANI PENDLETON Attending [...] MCCLAIN Attending Unavailable Problems Active Problems Problem ClassificationProblemDateDocumented DateEpisodic/ChronicDisorders of lipid metabolism (5 sources)Pure hypercholesterolemia, unspecified; Translations: [Hyperlipidemia, unspecified]Onset: 63-64-3733FlqpqtsUkfzjoljyah; intervertebral disc disorders; other back problems (4 sources)Sacrococcygeal disorders, not elsewhere classified; Translations: [SACROCOCCYGEAL DISORDERS NEC]Onset: 20-78-9080Uahliblh Past or Other Problems Problem ClassificationProblemDateDocumented DateEpisodic/ChronicConditions associated with dizziness or vertigo (4 sources)Other peripheral vertigo, unspecified ear; Translations: [OTHER PERIPHERAL VERTIGO UNS EAR]Onset: 84-79-8691GebhzqrdPyhhjltiht and other anemia (1 source)Anemia, unspecified; Translations: [ANEMIA UNSPECIFIED]Onset: 97-68-3720LzxggxjxUgkkynvm mellitus without complication (1 source)Other abnormal glucose; Translations: [OTHER ABNORMAL GLUCOSE]Onset: 92-22-2744EknvbrapXkhia screening for suspected conditions (not mental disorders or infectious disease) (1 source)Encounter for screening for malignant neoplasm of rectum; Translations: [ENC SCREEN MALIG NEOPLASM RECTUM]Onset: 69-09-0662Jwufcwqi Results Test NameValueInterpretationReference RangeFacilityCBC AUTO DIFFon 08-13-2021 BASO #0.0 103/ulNormal0.0-0.1The [facility] HospitalComment on above:Performed By: #### CBC #### [facility] [address] [address] [address] Jonathan MorelBasophils/100 WBC (Bld)0.5 %Normal0.2-2.0[facility] Comment on above:Performed By: #### CBC #### [facility] [address] [address] [address] Jonathan Ramon #0.1 103/ulNormal0.0-0.7The [facility] HospitalComment on above: Performed By: #### CBC #### [facility] [address] [address] [address] Jonathan Johnstonosinophils/100 WBC (Bld)1.4 %Normal0.9-7.0[facility] Comment on above:Performed By: #### CBC #### [facility] [address] [address] [address] Jonathan Johnstonrythrocyte distribution width (RBC) [Ratio]13.2 %Tdgzov02.0-15.0 The [facility] HospitalComment on above:Performed By: #### CBC #### [facility] [address] [address] [address] Jonathan MorelHematocrit (Bld) [Volume fraction]39.0 %Mpsrym47.0-48.0The [facility] HospitalComment on above:Performed By: #### CBC #### [facility] [address] [address] [address] Jonathan MorelHemoglobin (Bld) [Mass/Vol]12.9 g/nKKlleqk42.0-16.0[facility] HospitalComment on above:Performed By: #### CBC #### [facility] [address] [address] [address] Jonathan Carvajal #0.01 10e3/ulNormal0.00-0.03The [facility]uder HospitalComment on above:Performed By: #### CBC #### [facility] [address] [place] [address] Dr. Jonathan Carvajal %0.2 %Normal0.0-0.5The [facility] HospitalComment on above: Performed By: #### CBC #### [facility] [address] [place] [address] Dr. Jonathan Vivas #2.1 103/ulNormal1.2-3.8The [facility] HospitalComment on above:Performed By: #### CBC #### [facility] [address] [place] [address] Dr. Jonathan Zavalahocytes/100 WBC (Bld)37.6 %Jkiiag00.5-60.0The [facility] HospitalComment on above:Performed By: #### CBC #### [facility] [address] [place] [address] Dr. Jonathan Perkins DIFF REQNONormalThe Magruder HospitalComment on above: Performed By: #### CBC #### [facility] [address] [place] [address] Dr. Jonathan Menon (RBC) [Entitic mass]31.3 jpEfeiju53.7-34.0The [facility] HospitalComment on above:Performed By: #### CBC #### [facility] [address] [place] [address] Dr. Jonathan Noonan (RBC) [Mass/Vol]33.1 g/nLBiuwcr76.9-35.2The [facility] HospitalComment on above:Performed By: #### CBC #### [facility] [address] [place] [address] Dr. Jonathan Noonan (RBC) [Entitic vol]94.7 hBCtgrpm12.0-99.0The [facility] HospitalComment on above:Performed By: #### CBC #### [facility] [address] [place] [address] Dr. Yilan ChangMONO #0.5 103/ulNormal0.3-0.8The [facility] HospitalComment on above:Performed By: #### CBC #### [facility] [address] [place] [address] Dr. Jonathan Stillocytes/100 WBC (Bld)8.6 %Normal1.7-12.0[facility] Comment on above:Performed By: #### CBC #### [facility] [address] [place] [address] Dr. Jonathan Demarco #2.9 103/ulNormal1.4-6.5The [facility] HospitalComment on above:Performed By: #### CBC #### [facility] [address] [place] [address] Dr. Jonathan Rhodesophils/100 WBC (Bld)51.7 %Vflsqd95.0-75.0The [facility] HospitalComment on above:Performed By: #### CBC #### [facility] [address] [place] [address] Dr. Jonathan Dillardlet mean volume (Bld) [Entitic vol]9.9 fLNormal9.5-13.5The [facility] HospitalComment on above:Performed By: #### CBC #### [facility] [address] [place] [address] Dr. Jonathan ZhuT298 103/mlQkiikm498-887Sqg [facility] HospitalComment on above: Performed By: #### CBC #### [facility] [address] [place] [address] Dr. Jonathan MorelRBC4.12 106/ulCritically low4.20-5.40The [facility] HospitalComment on above:Performed By: #### CBC #### [facility] [address] [place] [address] Dr. Jonathan MorelWBC5.6 103/ulNormal4.0-11.0The [facility] HospitalComment on above: Performed By: #### CBC #### [facility] [address] [place] [address] Dr. Jonathan Torre THYROXINE INDEX T7on 61-33-0418RCG8.64Yrdiky9.30-4.50The [facility] HospitalComment on above:Performed By: #### TSH, CMP, LIPID, T7 #### [facility] [address] [address] [address] Jonathan MorelT3U34.0 %Hvzxiv26.0-39.0The [facility] HospitalComment on above: Performed By: #### TSH, CMP, LIPID, T7 #### [facility] [address] [address] [address] Jonathan MorelT4 [Mass/Vol]7.40 ug/dLNormal4.80-13.90[facility] Comment on above:Performed By: #### TSH, CMP, LIPID, T7 #### [facility] [address] [address] [address] Jonathan MorelGLYCOHEMOGLOBIN A1Con 17-09-1604SGQ RECOMMENDATIONSEE BELOWNormal The [facility]uder HospitalComment on above:Result Comment: ADA RECOMMENDED LIMIT 4.0 - 6.0 ADA THERAPEUTIC TARGET < 7.0 ACTION SUGGESTED > 7.0Performed By: #### A1C #### [facility] [address] [address] [address] Jonathan MorelGlucose [Mass/Vol]120 mg/dLNormalThe Magruder HospitalComment on above:Performed By: #### A1C #### [facility] [address] [address] [address] Jonathan MorelHbA1c (Bld) [Mass fraction]5.8 %Normal4.5-6.2The [facility] HospitalComment on above:Performed By: #### A1C #### [facility] [address] [address] [address] Jonathan MorelIROBecky 78-87-9010Crvz [Mass/Vol]128.0 ug/nLQwakbw13.0-170.0The [facility] HospitalComment on above:Performed By: #### IRON #### [facility] [address] [address] [address] Jonathan MorelLIPID PROFILEon 99-09-4856QJWL-HDL RATIO NORMSParkview Health Montpelier HospitalComment on above:Result Comment: 3.3 - 4.4 LOW RISK 4.4 - 7.1 AVERAGE RISK 7.1 - 11.0 MODERATE RISK >11.0 HIGH RISKPerformed By: #### TSH, CMP, LIPID, T7 #### [facility] [address] [place] [address] Dr. Jonathan MorelCholesterol [Mass/Vol]145 mg/dLNormal<=200The [facility] Comment on above:Performed By: #### TSH, CMP, LIPID, T7 #### [facility] [address] [place] [address] Dr. Jonathan MorelCholesterol in HDL [Mass/Vol]53 mg/bBKklyvo84-72LoxMiami Valley HospitalComment on above:Performed By: #### TSH, CMP, LIPID, T7 #### [facility] [address] [place] [address] Dr. Jonathan MorelCholesterol in LDL [Mass/Vol]71.8 mg/dLOhioHealth Riverside Methodist HospitalComment on above:Performed By: #### TSH, CMP, LIPID, T7 #### [facility] [address] [place] [address] Dr. Jonathan Dao.total/Cholesterol in HDL [Mass ratio]2.7 {ratio} NormalMiami Valley HospitalCommemorial healthcare on above:Performed By: #### TSH, CMP, LIPID, T7 #### [facility] [address] [place] [address] Dr. Jonathan Randall NORMAL> or = 60 mg/dl - LOW CARDIOVASCULAR RISK <40 mg/dl - HIGH CARDIOVASCULAR RISKOhioHealth Riverside Methodist HospitalCommemorial healthcare on above:Performed By: #### TSH, CMP, LIPID, T7 #### [facility] [address] [place] [address] Dr. Jonathan Sher CALC NORMALSEE [facility] for RehabilitationCommemorial healthcare on above:Result Comment: <100 mg/dl OPTIMAL 100 - 129 mg/dl NEAR OR ABOVE OPTIMAL 130 - 159 mg/dl BORDERLINE HIGH 160 - 189 mg/dl HIGH >190 mg/dl VERY HIGH Performed By: #### TSH, CMP, LIPID, T7 #### [facility] [address] [address] [address] Jonathan MorelTriglyceride [Mass/Vol]101 mg/dLNormal<=150[facility] Comment on above:Performed By: #### TSH, CMP, LIPID, T7 #### [facility] [address] [address] [address] Jonathan MorelVLDL CALC20.2 mg/dLNormalThe [facility]ruder HospitalComment on above: Performed By: #### TSH, CMP, LIPID, T7 #### [facility] [address] [address] [address] Jonathan Perez 14(COMP METB)on 08-22-2769Myofhrw [Mass/Vol]3.8 g/dLNormal 3.4-5.0The [facility] HospitalComment on above:Performed By: #### TSH, CMP, LIPID, T7 #### [facility] [address] [address] [address] Jonathan MorelAlbumin/Globulin [Mass ratio]1.0 {ratio}NormalThe [facility]uder HospitalComment on above:Performed By: #### TSH, CMP, LIPID, T7 #### [facility] [address] [place] [address] Dr. Jonathan Dukes [Catalytic activity/Vol]49 U/LGjmdbb78-693Wep [facility] HospitalComment on above:Performed By: #### TSH, CMP, LIPID, T7 #### [facility] [address] [address] [address] Jonathan Benites [Catalytic activity/Vol]27 U/BPzkaho50-17Fux [facility] HospitalComment on above:Performed By: #### TSH, CMP, LIPID, T7 #### [facility] [address] [place] [address] Dr. Jonathan Taylor gap [Moles/Vol]10.8 mmol/LNormalThe [facility] Comment on above:Performed By: #### TSH, CMP, LIPID, T7 #### [facility] [address] [place], [place] [address] Dr. Jonathan MorelAST [Catalytic activity/Vol]23 U/JPzojgl88-20Gas [facility] HospitalComment on above:Performed By: #### TSH, CMP, LIPID, T7 #### [facility] [address] [address] [address] Jonathan MorelBilirubin [Mass/Vol]0.7 mg/dLNormal0.2-1.0[facility] Comment on above:Performed By: #### TSH, CMP, LIPID, T7 #### [facility] [address] [address] [address] Jonathan MorelCalcium [Mass/Vol]9.5 mg/dLNormal8.5-10.1[facility] Comment on above:Performed By: #### TSH, CMP, LIPID, T7 #### [facility] [address] [place] [address] Dr. Jonathan MorelChloride [Moles/Vol]105 mmol/HUutuun62-646Mka [facility] Comment on above:Performed By: #### TSH, CMP, LIPID, T7 #### [facility] [address] [place] [address] Dr. Jonathan MorelCO2 [Moles/Vol]30.0 mmol/TPijtpi54.0-32.0[facility] Comment on above:Performed By: #### TSH, CMP, LIPID, T7 #### [facility] [address] [address] [address] Jonathan MorelCreatinine [Mass/Vol]0.84 mg/dLNormal0.55-1.02The [facility] HospitalComment on above:Performed By: #### TSH, CMP, LIPID, T7 #### [facility] [address] [address] [address] Jonathan JohnstonGFR-AF CITIZEN OF [place]>60Normal>=60The [facility] HospitalComment on above:Performed By: #### TSH, CMP, LIPID, T7 #### [facility] [address] [address] [address] Jonathan JohnstonGFR-NON AF CITIZEN OF [place]>60Normal>=60The [facility] HospitalComment on above:Performed By: #### TSH, CMP, LIPID, T7 #### [facility] [address] [address] [address] Jonathan MorelGlobulin (S) [Mass/Vol]3.8 g/dLNoFirelands Regional Medical CenterComment on above:Performed By: #### TSH, CMP, LIPID, T7 #### [facility] [address] [address] [address] Jonathan MorelGlucose [Mass/Vol]91 mg/gHQgjxda88-787OiyMiami Valley Hospital Comment on above:Performed By: #### TSH, CMP, LIPID, T7 #### [facility] [address] [address] [address] Jonathan MorelPotassium [Moles/Vol]4.8 mmol/LNormal3.5-5.1[facility] Comment on above:Performed By: #### TSH, CMP, LIPID, T7 #### [facility] [address] [address] [address] Jonathan MorelProtein [Mass/Vol]7.6 g/dLNormal6.4-8.2[facility] Comment on above:Performed By: #### TSH, CMP, LIPID, T7 #### [facility] [address] [place] [address] Dr. Jonathan MorelSodium [Moles/Vol]141 mmol/IHigrew933-229AohMiami Valley Hospital Comment on above:Performed By: #### TSH, CMP, LIPID, T7 #### [facility] [address] [place] [address] Dr. Jonathan MorelUrea nitrogen [Mass/Vol]20.0 mg/dLCritically high7.0-18.0The [facility] HospitalComment on above:Performed By: #### TSH, CMP, LIPID, T7 #### [facility] [address] [place] [address] Dr. Jonathan Carl nitrogen/Creatinine [Mass ratio]23.8 mg/mgNoFirelands Regional Medical CenterComment on above:Performed By: #### TSH, CMP, LIPID, T7 #### [facility] [address] [address] [address] Jonathan Adrian 92-40-2000TJX8.649 uIU/mLNormal0.358-3.740[facility] HospitalComment on above:Performed By: #### TSH, CMP, LIPID, T7 #### [facility] [address] [address] [address] Jonathan [facility] Regional Medical CenterComment on above: Result Comment: <0.34 UIU/ml HYPERTHYROID 0.34-5.60 UIU/ml EUTHYROID >5.60 UIU/ml HYPOTHYROIDPerformed By: #### TSH, CMP, LIPID, T7 #### [facility] [address] [address] [address] Jonathan Morel Encounters Encounter DateEncounter TypeCare ProviderFacilityStart: 08-04-2023 End: 31-56-6605wfvhjdeynsTODXAX H TIMMISNot AvailableStart: 07-26-2023 End: 62-33-6894qmokieolzaIGDXOCA A MCGILLNot AvailableStart: 04-29-2022 End: 49-41-5497khtzboewlkQE RAJANI HOYFacility:L3Mbcdc: 12-05-2021 End: 18-65-1856mppkoutnpeJV RAJANI HOYFacility:W1Kvcvt: 08-13-2021 End: 18-39-5294nhncieivhwOO RAJANI HOYFacility:H1 Payers DatePayer CategoryPayerPolicy [id number] Health [id number] [id number] 1960Private Health [id number] [id number] Clinical Note 04-29-2022 Note Date & TawgVyjhJecrxvus52-71-1731 NotePROCEDURE: XR SACRUM_COCCYX, XR LSPINE MIN 4 VIEWS HISTORY: Disorder [...] Electronically authenticated by: KELLI MARTIN Date: 2022-04-29 10:[address] [place] [address] Clinical Note 04-29-2022 Note Date & BnaxShwuWcapdsrr23-91-6484 NotePROCEDURE: XR SACRUM_COCCYX, XR LSPINE MIN 4 VIEWS HISTORY: Disorder [...] Electronically authenticated by: KELLI MARTIN Date: 2022-04-29 10:20[facility] Summary Purpose Family History No Family History Records FoundNo Family History Records Found Advance Directives No Advanced Directives Records FoundNo Advanced Directives Records Found Additional Source Comments INFORMATION SOURCE (unrecogn ized section and content) DATE CREATED AUTHOR 04/30/2022 [facility] DATE CREATED AUTHOR AUTHOR'S ORGANIZ ATION 08/06/2023 [facility] EPIC FOR RECORDS PERTAINING TO PATIENTS [...] BE BASED ON THE PRIMARY CLINICAL RECORDS. [facility] [employer] provides no warranty or guarantee of the accuracy or completeness of information in this document.
--- OUTSIDE RECORDS SUMMARY | 2025-01-16 08:13 | XMS_ITS | Clinical Summary ---
Author Organization [facility] Address [address] [place] [address] Care Team Providers Care Engineering Mgr Name Role Phone Rohit Ma MD Primary Care Provider [phone] Allergies Active AllergyReactionsCriticalityNoted DzpzUhcsgblyCoakadjmfvjh80/06/2024 Other Reaction(s): Unknown Imtdtdjzr83/06/2024 Other Reaction(s): could not function Medications MedicationSigDispense QuantityRefillsLast FilledStart DateEnd DateStatus alendronate (Fosamax) 70 MG tablet Take 70 mg by mouth every 7 (seven) days05/12/2023ctive [facility] Rlf 10 MG tablet Take 10 mg by mouth Daily05/14/2023ctive diclofenac (Voltaren) 75 MG EC tablet Take 75 mg by mouth in the morning and 75 mg before bedtime.06/29/2023ctive fluticasone (Flonase) 50 MCG/ACT nasal spray Administer 1 spray into each nostril Daily04/06/2023ctive hydrOXYzine HCl (Atarax) 25 MG tablet Take 25 mg by mouth 3 (three) times a day as needed for nhcczjr1101/11/2023ctive liothyronine (Cytomel) 5 MCG tablet Take 5 mcg by mouth Daily07/16/2023ctive simvastatin (Zocor) 40 MG tablet Take 40 mg by mouth Daily05/04/2023ctive meclizine (Antivert) 25 MG tablet Take 25 mg by mouth 3 (three) times a day as qnknzw9102/25/2023ctive aspirin 81 MG EC tablet Take 81 mg by mouth 1 (one) time each day at the same timeActive Multiple Vitamins-Minerals (MULTIVITAMIN ADULT, MINERALS, PO) Take 1 tablet by mouth in the morning and 1 tablet at noon and 1 tablet in the evening and 1 tabletbefore bedtime.Active calcium 200 MG tablet CalciumActive biotin 1 MG capsule BiotinActive Calcium Carbonate (CALCI-CHEW PO) Calci-ChewActive Active Problems ProblemNoted DateDiagnosed DateHypothyroidism, yxhisxdfqsl90/06/2024egenerative joint disease of knee07/29/20239005Hdmvjqn28/02/3299Sqrqmms41/02/2024Insomnia 07/29/2023Hearing loss07/29/20233149Grcexywycyba80/02/2024Otitis media, serous 07/29/2023adial styloid uyuxtpbglezzr32/02/6986Brvvwnsvtsfoxedgda71/02/2024 Immunizations ImmunizationAdministration DatesNext DueInfluenza, Seasonal, Quadrivalent, Zexgwslfdz19/30/2023 Family History Medical HistoryRelationNameCommentsHTNFatherHeart diseaseFatherLung cancerMother DementiaSisterRelationNameStatusCommentsBrotherDeceasedFatherDeceasedMother SisterDeceased Social History Tobacco UseTypesPacks/DayYears UsedDateSmoking Tobacco: NeverPassive Smoke Exposure: NeverSmokeless Tobacco: Never Tobacco Cessation:Counseling Given: Not Answered Alcohol UseStandard Drinks/WeekCommentsNot Currently0 (1 standard drink = 0.6 oz pure alcohol)CommentsUnknownSex and Gender InformationValueDate Recorded Sex Assigned at BirthNot on fileLegal HodRyythn19/15/2023 7:25 PM EDTGender IdentityNot on fileSexual OrientationNot on file Last Filed Vital Signs Vital SignReadingTime TakenCommentsBlood Wpqycqvk983/63008/04/2023 10:31 AM EDT Pulse--Temperature--Respiratory Rate--Oxygen Saturation--Inhaled Oxygen Concentration--Ckcnxo78.4 kg (142 lb)08/04/2023 10:31 AM DUPOoxico536.3 cm (4' 10 )08/04/2023 10:31 AM EDTBody Mass Index29.68008/04/2023 10:31 AM EDT Plan of Treatment Not on file Insurance MemberSubscriberPlan / Payer (Effective 2020-Present)Name:Sunshinesusannaenrique Jennifer M Relation to Subscriber:SelfName:Jennifer Contreras Payer ID:[facility] ([facility]) Type:Not on file Address: [facility] [id number] [place] [phone] Care Teams Team MemberRelationshipSpecialtyStart Date Rohit Ma MD PCP - GeneralFamily Medicine07/26/23
--- OUTSIDE RECORDS SUMMARY | 2025-01-16 08:13 | XMS_ITS | Patient Health Record ---
Author Organization The [facility] [place] Address [address] [place] [address] Care Team Providers Care Dye Beck Reel Operator Name Role Phone HuberDamien weston Primary Care Provider Allergies Allergen (clinical drug ingredient) Drug/Non Drug Allergy documented on EMR Reaction Allergy Type Onset Date Status levofloxacin Levofloxacin Unknown Drug Allergy ActiveprimidonePrimidonecould not functionDrug AllergyActive Results Component Value Reference Range Notes LIPID PROFILE Reviewed date:05/03/2024 12:31:40 PM Interpretation: Performing Lab: Notes/Report: [facility] , Triglycerides 102 <=150 mg/dL Zqmpzoukjfh217<=200 mg/dLHDL Lmdmfnsoaxg5274-74 mg/dL > or =60 mg/dl - LOW CARDIOVASCULAR RISK <40 mg/dl - HIGH CARDIOVASCULAR RISK LDL Cholesterol Rxtlhgugyw62.6 <100 mg/dl OPTIMAL 100-129 mg/dl NEAR OR ABOVE OPTIMAL 130-159 mg/dl BORDERLINE HIGH 160-189 mg/dl HIGH >190 mg/dl VERY HIGH VLDL CRDTDNDAIPY13.4Chol HDL Ratio2.9 3.3 - 4.4 LOW RISK 4.4 - 7.1 AVERAGE RISK 7.1 - 11.0 MODERATE RISK >11.0 HIGH RISK Performing Lab:see note - [facility] LBGLYCOHEMOGLOBIN A1C Reviewed date:05/03/2024 12:31:40 PM Interpretation: Performing Lab: Notes/Report: [facility] ,Glycohemoglobin A1C5.54.5-6.2 % ADA RECOMMENDED LIMIT 4.0 - 6.0 ADA THERAPEUTIC TARGET < 7.0 ACTION SUGGESTED > 7.0 Estimated Average Clahxrr800Dbcgxdwmap Lab:see noteML - [facility] LB CBC AUTO DIFF Reviewed date:05/03/2024 08:47:02 AM Interpretation: Performing Lab: Notes/Report: [facility] ,White Blood Count6.54.0-11.0 10 3/uLRed Blood Count3.914.20-5.40 10 6/uL Oaqnnezoeh05.312.0-16.0 g/jQRhnijajkhb67.336.0-48.0 %Mean Corpuscular Eugadx25.4 81.0-99.0 fLMean Corpuscular Khcgbgapgf39.526.7-34.0 pgMean Corpuscular HGB Conc 33.029.9-35.2 g/dLRed Cell Distribution Width13.211.0-15.0 %Platelet Bjptf627 150-450 10 3/uLMean Platelet Volume9.99.5-13.5 fLNeutrophils Percent Auto53.7 43.0-75.0 %Lymphocytes Percent Auto36.120.5-60.0 %Monocytes Percent Auto8.01.7- 12.0 %Eosinophils Percent Auto1.20.9-7.0 %Basophils Percent Auto0.80.2-2.0 % Immature Granulocytes Pct Auto0.20.0-0.5 %Neutrophils Absolute Auto3.51.4-6.5 10 3/uLLymphocytes Absolute Auto2.31.2-3.8 10 3/uLMonocytes Absolute Auto0.50.3-0.8 10 3/uLEosinophils Absolute Auto0.10.0-0.7 10 3/uLBasophils Absolute Auto0.10.0- 0.1 10 3/uLImmature Granulocytes Abs Auto0.010.00-0.03 10 3/uLPerforming Lab:see noteML - [facility] LBXR DEXA axial skeleton Reviewed date:02/02/2024 09:30:39 PM Interpretation: Performing Lab: Notes/Report: Source Facility: [facility]-[address] [place] [address] [place] [address] XRay Report Signed Patient: JENNIFER CONTRERAS MR#: [id number] : 1945 Acct:[id number] Age/Sex: 78 / F ADM Date: 02/01/24 Loc: [facility] Attending Dr: Rajani Pendleton M.D. Ordering Physician: Rajani Pendleton M.D. Date of Service: 02/01/24 Procedure(s): XR DEXA axial skeleton Accession Number(s): [id number] cc: Rajani Pendleton M.D. [place] [id number] Patient Name: JENNIFER CONTRERAS MRN: [facility]:[id number] date: 1945 Sex: F Assigned Patient Location: [facility] Current Patient Location: Accession/Order Number: [id number] Exam Date: 02/01/2024 09:02 Report Date: 02/02/2024 09:08 At the request of: RAJANI PENDLETON Procedure: XR DEXA axial skeleton EXAMINATION: XR DEXA axial skeleton, 02/01/2024 9:02 AM EST HISTORY: Age Related Osteoporosis COMPARISON: 2005. TECHNIQUE: Dual-energy X-ray absorptiometry (DEXA) bone density study performed for the axial skeleton. FINDINGS: Bone mineral density AP spine L1-L4 measures 1.367 g/sq cm. T score 1.6. Normal Lowest bone mineral density right femoral neck measures 0.779 g/sq cm. T score -1.9. Osteopenia XR/XR DEXA axial skeleton IMPRESSION: Osteopenia. Moderate fracture risk Pharmacologic treatment recommendations * No uniform recommendation applies to all patients. Management plans must be individualized. * Consider initiating pharmacologic treatment in postmenopausal women and men >= 50 years of age who have the following: Primary fracture prevention: * T-score <= - 2.5 at the femoral neck, total hip, lumbar spine, 33% radius (some uncertainty with existing data) by DXA. * Low bone mass (osteopenia: T-score between - 1.0 and - 2.5) at the femoral neck or total hip by DXA with a 10-year hip fracture risk >= 3% or a 10-year major osteoporosis-related fracture risk >= 20% (i.e., clinical vertebral, hip, forearm, or proximal humerus) based on the US-adapted FRAXregistered model. Secondary fracture prevention: * Fracture of the hip or vertebra regardless of BMD [4, 5]. * Fracture of proximal humerus, pelvis, or distal forearm in persons with low bone mass (osteopenia: T-score between - 1.0 and - 2.5). The decision to treat should be individualized in persons with a fracture of the proximal humerus, pelvis, or distal forearm who do not have osteopenia or low BMD [12, 13]. Janett MS, Graciela SL, Susanna KL, Ladi EM, Manoj KG, AJ, Terrence ES. The clinician's guide to prevention and treatment of osteoporosis. Osteoporos Int. 2021;33(10):7235-0363. doi: 10.1007/l02779-587-05306-l. Epub 2021Jul 24. Erratum in: Osteoporos Int. 2021Oct 23;: PMID: 32476160; PMCID: ERQ6946787. Electronically authenticated by: ELIZABETH VALENTE Date: 02/02/2024 09:08 Dictated By: Elizabeth Valente M.D. Signed By: 02/02/24909 DD/ 7 TD/TT: Arabic Translator:TSH Reviewed date:05/03/2024 12:31:39 PM Interpretation: Performing Lab: Notes/Report: [facility] ,Thyroid Stimulating Hormone1.8780.358-3.740 uIU/mLPerforming Lab:see noteML - [facility] LBT4 Reviewed date:05/03/2024 12:31:39 PM Interpretation: Performing Lab: Notes/Report: [facility] ,T4 Thyroxine4.704.80-13.90 ug/dLPerforming Lab:see noteML - [facility] LBPROF 14(COMP METB) Reviewed date:05/03/2024 12:31:39 PM Interpretation: Performing Lab: Notes/Report: [facility] ,Tjtlly784102-726 mmol/LPotassium4.43.5-5.1 mmol/TOsayycgx91695-609 mmol/LCarbon Dedbhir65.421.0-32.0 mmol/LAnion Gap12.8Jbvcvmj6416-101 mg/dLBlood Urea Nitrogen 16.07.0-18.0 mg/dLCreatinine0.780.55-1.02 mg/dLEstimated GFR ( Shelby>60 >=60 mL/min/1.73m 2Estimated GFR (Non- Olga>60>=60 mL/min/1.73m 2BUN Creatinine Ratio20.2Ohwxeuy9.98.5-10.1 mg/dLBilirubin Total0.60.2-1.0 mg/dL Aspartate Amino Fnlndddgokk7970-47 U/LAlanine Tnhjquilnaxfugyd3497-94 U/L Alkaline Natdgbdqsss9099-392 U/LTotal Protein7.26.4-8.2 g/dLAlbumin Level3.53.4- 5.0 g/dLGlobulin3.7Albumin Globulin Ratio0.9Performing Lab:see noteML - [facility] LBFREE T3 Reviewed date:05/03/2024 12:31:39 PM Interpretation: Performing Lab: Notes/Report: [facility] ,Free T31.412.18-3.98 pg/mLPerforming Lab:see noteML - [facility] LB Reason For Referral Diagnosis 1 Vertigo (R42) Referral Organization [facility] Medicine Referring Provider First Name Damien Referring Provider Last Name Anil Referring Provider Speciality [facility] Referred Provider Jeff Barrera Referred Provider Specialty Neurology Referral Priority Routine Medications Medication SIG (Take, Route, Frequency, Duration) Notes Start Date End Date Status Cetirizine HCl 10 MG 2 tablet Orally Once a day; Duration: 30 days 03/10/2023ctiveCalciumActiveCytomel 5 MCG2 tablet on an empty stomach Orally Once a day; Duration: 30 days5ActiveFluticasone Propionate 50 MCG/DOSE1 spray in each nostril Nasally Once a day; Duration: ctiveDiclofenac Sodium 75 MGTAKE 1 TABLET BY MOUTH EVERY DAY FOR 30 DAYS; Duration: 30Active MultivitaminActiveMeclizine HCl 25 MG1 tablet as needed Orally LNMFVK8010/05/2022 ActiveAspirin 81 81 MG1 tablet Orally Once a dayActiveAlendronate Sodium 70 MG TAKE 1 TABLET BY MOUTH ONE TIME PER WEEK Orally; Duration: 84 daysActive Simvastatin 40 MGTAKE 1 TABLET BY MOUTH EVERY DAY; Duration: 90ActiveCalci-Chew ActiveBiotinActive Immunizations Vaccine Route Administration Date Status Comme nts Flu, Fluad (05152) 65 yrs+, single-dose syringe (9422-3897) Unknown 02/25/2023 Administered Flu, Fluzone High-Dose (1619-8813) (74270) 65 yrs+Qacxxiy0405/13/2022dministered SARS-COV-2 (COVID 19 Sonam 0.5mL) BlakeUnknown08/07/2020 QfadncghfqlwJRSO-CEX-9 (COVID 19 Pfizer 30mcg/0.3mL)Ythfhmo9904/01/2021 Administered Social History Tobacco Use: Social History Observation Description Date Details (start date - stop date) Never Smoker NA - NA Tobacco Use/Smoking Question Answer Notes Patient is a nonsmoker Alcohol Screen (Audit-C) Question Answer Notes Did you have a drink containing alcohol in the p ast year? No Dpgjoz6SdermgpffyiqenTjbghqfhJQCHE-M (Standard) Question Answer Notes Did you have a drink containing alcohol in the p ast year? No Axcwmg4KslvwomuimettjWteydooi Problems Problem Type SNOMED Code ICD Code Onset Dates Problem Status W/U Status Risk Notes Problem Hypothyroidism (35590049) Hypothyroidism, unspecified (E03.9) ActiveconfirmedProblemAge-related osteoporosis (524111888)Age-related osteoporosis without current pathological fracture (M81.0)ActiveconfirmedProblem Osteoarthritis (126170608)Osteoarthritis (M19.90)ActiveconfirmedProblemAnxiety (81969935)Anxiety (F41.9)ActiveconfirmedProblemVertigo (613021274)Vertigo (R42) ActiveconfirmedProblemInsomnia (218373983)Insomnia (G47.00)Activeconfirmed ProblemHearing loss (94148282)Hearing loss (H91.90)ActiveconfirmedProblem Osteoporosis (64336678)Osteoporosis (M81.0)ActiveconfirmedProblemSerous otitis media (53664658)Serous otitis media (H65.90)ActiveconfirmedProblemOsteoarthritis of knee (852301382)Arthritis of knee, degenerative (M17.9)ActiveconfirmedProblem Radial styloid tenosynovitis (12253070)Radial styloid tenosynovitis (M65.4) ActiveconfirmedProblemAcute bronchiolitis (4975450)Acute bronchiolitis (J21.9) ActiveconfirmedProblemNon-suppurative otitis media (324498684)Left serous otitis media (H65.92)ActiveconfirmedProblemhypercholesterolemia (disorder) (83141772) Hypercholesteremia (E78.00)Activeconfirmed Vital Signs Blood pressure diastolic 90 mm Hg 12/28/2024 Xvsoel01.25 in12/28/2024lood pressure amxkfstk746 mm Hg12/28/20244823Rknayr991.8 lbs1MI30.41 kg/m212/28/2024 Encounters Encounter Location Date Provider Diagnosis [address] [address] 05/31/2024 Damien Hoy Hypothyroidism, unspecified E03.[address] [address] 10/11/2024 Damien Ngoy Encounter for Medica re annual wellness exam Z00.[address] [address] 12/28/2024 Damien Hoy Vertigo R42 [address] [address] 02/03/2024 Damien Hoy [address] [address] 05/01/2024Doug HoyHypothyroidism, unspecified E03.9 ; Hypercholesteremia E78.[address] [address]/07/2024Doug HoyHypothyroidism, unspecified E03.9[address] [address]/Doug Hoy Vertigo H[address] [address]/Doug HoyVertigo W04QqatkhuUnityPoint Health-[facility] [place] [address]/oug HoyAge-related osteoporosis without current pathological fracture M81.0[facility] [place] [address]/oug Hoy Assessments Encounter Date Diagnosis (ICD Code) Assessment Notes Treatment Notes Treatment Clinical Notes Section Notes 05/31/2024 Hypothyroidism, unspecified (ICD -10 - E03.9) 10/11/2024[facility] annual wellness exam (ICD-10 - Z00.00)patient presents to the office for a subsequent medicare wellness appointment. depression screening, anxiety screening and safety screening were all completed without issue, a slums memory test was completed and the patient scored 30/30, vision screening was completed and the patient could read at 20/20. patient is up to date on dexa scans and mammogram, patient has never had a colonoscopy and said she will never have a colonoscopy. patient declines vaccines a total of 20 minutes was spent withthe hftypsn9612/28/2024Vertigo (ICD-10 - R42)01/18/2024ge- related osteoporosis without current pathological fracture (ICD-10 - M81.0) 05/01/2024Hypothyroidism, unspecified (ICD-10 - E03.9)05/01/2024 Hypercholesteremia (ICD-10 - E78.00)05/03/2024Hypothyroidism, unspecified (ICD- 10 - E03.9)05/17/2024Vertigo (ICD-10 - R42)06/16/2024Vertigo (ICD-10 - R42) 05/01/2024Fatigue (ICD-10 - R53.83) Plan Of Treatment Pending Test Test Name Order Date CMP (COMPLETE METABOLIC PANEL) 3 HEMOGLOBIN A1C (GLYCO) 03/10/2023 IRON, TOTAL 03/10/2023 LIPID PANEL (CHOL/TRIG/HDL/LDL) 03/10/20 23 CBC WITH DIFF 03/10/2023 VITAMIN D, 25 LEVEL (TOTAL) 03/10/2023 MRI Brain w/o contrast 10/05/2022 FECAL OCCULT BLOOD 05/01/2024 CMP - Comprehensive Metabolic Panel 05/2024 CBC AUTO DIFF 02/04/2023 GLYCOHEMOGLOBIN A1C 02/04/2023 LIPID PROFILE 02/04/2023 PROF 14(COMP METB) 02/04/2023 THYROID PROFILE WITH TSH 02/04/2023 THYROID PROFILE WITH TSH 03/15/2023 MRI BRAIN WO W CON 12/28/2024 XR DEXA BONE DENSITY 01/18/2024 THYROID PANEL (T4/TSH/FREE T3) 4 THYROID PANEL (T4/TSH/FREE T3) 3 THYROID PANEL (T4/TSH/FREE T3) 5 THYROID PANEL (T4/TSH/FREE T3) 5 Insurance Providers Payer Name Payer Address Payer Phone Subscriber Number Group Number Insured Name Patient Relationship to Insured Coverage Start Date Coverage End Date [place] [address] [place] [address] [id number] Socorro Contreras - patient is the insured[facility]PO [address] [address] [place], [place] [id number], VernettaSelf - patient is the insured Medical (General) History Medical History History ICD Code Anxiety F41.9 Insomnia G47.00 Arthritis of knee, degenerative M17.9 Radial styloid tenosynovitis M65.4 Osteoporosis M81.0 Osteoarthritis M19.90 Hypercholesteremia E78.00 Vertigo R42 Heel spur M77.30 Torticollis M43.6 Near syncope R55 Surgical History Surgery Date(Month/Year) Tonsillectomy HysterectomyOvary removalAppendectomyHospitalization History Reason Date(Month/Year) See above
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
[2025-01-16 08:49] LABS: Estimated GFR (African America >60 (>=60 mL/min/1.73m^2); Estimated GFR (Non-African Ame >60 (>=60 mL/min/1.73m^2)
== END 2025-01-16 08:11 | disposition home or self-care (01) ==
LOC: LAB 08:10
PROVIDERS: Pathology Anatomic Pathology & Clinical Pathology; PCP Family Medicine; Visit Provider Family Medicine
DX: R42 Dizziness and giddiness (principal); Q04.6 Congenital cerebral cysts
CPT/HCPCS: 36415; 70553; 82565; A9575